=== PATIENT | female | born 1945 | race Two or more races ===

== ENCOUNTER → 2023-11-10 | Emergency (ER) | payer OTHER ==
[~2023-11-10] VITALS: Ht 157.5 cm; Wt 68.0 kg
[~2023-11-10] MED LIST: LEVOXYL75 MCG PO; VALSARTAN80 MG PO
[2023-11-10 17:36] LABS: PH,URINE 5.5 (5.0-8.0); URINE APPEARANCE Clear; URINE BILIRRUBIN Negative (NEGATIVE); URINE BLOOD Negative; URINE COLOR Yellow; URINE GLUCOSE Negative (NEGATIVE); URINE LEUKOCYTE Negative; URINE NITRATE Negative; URINE PROTEIN Negative (NEGATIVE); URINE UROBILINOGEN 0.2 E.U./dl
[2023-11-10 17:37] LABS: URINE BACTERIA 13.8 uL (0.0-1933); URINE EPITHELIAL CELLS 13.1 uL (0.0-38.8); URINE WBC 1.8 uL (0.0-23.2)
[2023-11-10 17:39] LABS: URINE RBC 0.5 uL (0.0-20.8)
== END | disposition home or self-care (01) ==
LOC: ER 15:32
PROVIDERS: General Practice
DX: U07.1 COVID-19 (principal); J06.9 Acute upper respiratory infection, unspecified; R51.9 Headache, unspecified